=== PATIENT | female | born 1975 | race Caucasian/White ===

== ENCOUNTER 2019-08-03 08:38 | Emergency (ER) | payer OTHER ==
[~2019-08-03] VITALS: Ht 165.1 cm; Wt 122.5 kg
[2019-08-03 08:51] VITALS: BP 167/103
[2019-08-03] MEDS ORDERED: HYDROcodone/APAP 5/325MG 1 TAB TABLET PO ONE (09:00)
--- NOTE | 2019-08-03 09:09 | PHYS DOC ---
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 She fell down 4 steps, hit a landing, and then down to more steps with her knee getting tangled up at the landing. She has not been able to walk on it since this happened. Reports the pain is moderate to severe, worse with movement. She was given 800 mg of ibuprofen shortly after this happened without any significant improvement in pain. She has no previous history of knee pain or injuries or surgeries. She den ies any other pain from this fall. She denies any syncopal episode. Denies any loss of consciousness. Denies any difficulty breathing or headache.[] Review of Systems Review of Systems Constitutional: Denies fever or chills [] Eyes: Denies change in visual acuity, redness, or eye pain [] HENT: Denies nasal congestion or sore throat [] Respiratory: Denies cough or shortness of breath [] Cardiovascular: No chest pain or palpitations[] GI: Denies abdominal pain, nausea, vomiting, bloody stools or diarrhea [] : Denies dysuria or hematuria [] Musculoskeletal: Denies back pain, see history of present illness[] Integument: Denies rash or skin lesions [] Neurologic: Denies headache, focal weakness or sensory changes [] Endocrine: Denies polyuria or polydipsia [] All other systems were reviewed and found to be within normal limits, except as documented in this note. Current Medications Current Medications Current Medications Medications (Trade) Dose Ordered Sig/John Start Time Stop Time Status Last Admin Dose Admin Acetaminophen/ Hydrocodone Bitart (Lortab 5/325) 1 tab 1X ONCE 08/03/19 09:00 08/03/19 09:01 UNV Allergies Allergies Allergies Coded Allergies Type Severity Reaction Last Updated Verified No Known Drug Allergies 08/03/19 No Physical Exam Physical Exam Constitutional: Well developed, well nourished, mild discomfort, non-toxic appearance. [] HENT: Normocephalic, atraumatic, bilateral external ears normal, oropharynx moist, no oral exudates, nose normal. [] Eyes: PERRLA, EOMI, conjunctiva normal, no discharge. [] Neck: Normal range of motion, no tenderness, supple, no stridor. [] Cardiovascular:Heart rate regular rhythm, no murmur [] Lungs & Thorax: Bilateral breath sounds clear to auscultation [] Abdomen: Bowel sounds normal, soft, no tenderness, no masses, no pulsatile masses. Pelvis is stable in 3 planes [] Skin: Warm, dry, no erythema, no rash. [] Back: No tenderness, no CVA tenderness. [] Extremities: Left knee has diffuse tenderness, worse on the medial aspect. No significant edema or effusion is noted. Decreased active range of motion from 0 to 30 secondary to pain. No varus or valgus laxity. Negative drawer, negative Nomi test. No patellar apprehension. No bruising is present. A joint above and a joined below were evaluated and were normal. She is distally neurovascularly intact. The other 3 extremities show: No tenderness, no cyanosis, no clubbing, ROM intact, no edema. [] Neurologic: Alert and oriented X 3, normal motor function, normal sensory function, no focal deficits noted. [] Psychologic: Affect normal, judgement normal, mood normal. [] Current Patient Data Vital Signs Vital Signs Date Time Temp Pulse Resp B/P (MAP) Pulse Ox O2 Delivery O2 Flow Rate FiO2 08/03/19 08:51 98.0 80 18 98 Room Air EKG EKG [] Radiology/Procedures Radiology/Procedures PROCEDURE: KNEE LEFT 3V KNEE LEFT 3V DATE: 08/03/2019 8:53 AM INDICATION: Pain after falling down the stairs COMPARISON: None. FINDINGS: Bones: There is no evidence of acute fracture or dislocation. Joints: The joint spaces are normal. There is no joint effusion. Miscellaneous: None. IMPRESSION: No evidence of acute fracture.[] Course & Med Decision Making Course & Med Decision Making Pertinent Labs and Imaging studies reviewed. (See chart for details) Emergency department course: Patient arrived, was placed in bed, and tolerated exam well. She was given pain medicine. She was transported to and from radiology with any complications. After return of the imaging findings, these were discussed with the patient and family. Anemia immobilizer was applied. She was distally neurovascularly intact after knee immobilizer application. She was trained in the use of crutches. She was discharged in improved condition with all questions answered, with family driving. Medical decision making: There is no evidence of a fracture or dislocation. No evidence of neurologic or vascular compromise.[] Dragon Disclaimer Dragon Disclaimer This electronic medical record was generated, in whole or in part, using a voice recognition dictation system. Departure Departure: Impression: Primary Impression: Knee injury Disposition: HOME, SELF-CARE Condition: IMPROVED Referrals: LELE VORA MD (PCP) Follow-up in 2 days Patient Instructions: Crutch Use, Knee Immobilizer-Brief, Knee Sprain Additional Instructions: Follow-up with your regular doctor in 2 days. Weight-bear as tolerated with your left leg. Use the crutches as necessary for support. Return to the ER if worsening pain or any other concerns. Scripts Tramadol Hcl (TRAMADOL HCL) 50 Mg Tablet 50 MG PO PRN Q6HRS PRN for PAIN, #20 TAB Prov: ELLA RESENDIZ DO 08/03/19 Meloxicam (MELOXICAM) 7.5 Mg Tablet 7.5 MG PO DAILY for PAIN, #20 TAB Prov: ELLA RESENDIZ DO 08/03/19 Problem Qualifiers Primary Impression: Knee injury Encounter type: initial encounter Laterality: left Qualified Codes: S89. 92XA - Unspecified injury of left lower leg, initial encounter ELLA RESENDIZ DO Aug 03, 2019 09:09
--- NOTE | 2019-08-03 09:26 | RAD ---
KNEE LEFT 3V DATE: 08/03/2019 8:53 AM INDICATION: Pain after falling down the stairs COMPARISON: None. FINDINGS: Bones: There is no evidence of acute fracture or dislocation. Joints: The joint spaces are normal. There is no joint effusion. Miscellaneous: None. IMPRESSION: No evidence of acute fracture. Electronically signed by: Jareth Flores MD (08/03/2019 9:23 AM) [facility]
[2019-08-03] MEDS ORDERED: MELO7.5T29 PO (09:45)
[2019-08-03] MEDS ORDERED: TRAM50TA PO (09:45)
== END 2019-08-03 10:00 | disposition home or self-care (01) ==
LOC: ER 08:38
DX: S89.92XA Unspecified injury of left lower leg, initial encounter (principal); E11.9 Type 2 diabetes mellitus without complications; E78.00 Pure hypercholesterolemia, unspecified; W10.8XXA Fall (on) (from) other stairs and steps, initial encounter; Y93.89 Activity, other specified; Y92.89 Other specified places as the place of occurrence of the external cause; Y99.8 Other external cause status
CPT/HCPCS: 29505; 73562; 99284

== ENCOUNTER 2019-10-17 12:03 | Emergency (ER) | payer OTHER ==
[~2019-10-17] VITALS: Ht 165.1 cm; Wt 122.0 kg
[~2019-10-17 12:03] MED LIST: MELO7.5T29 PO; TRAM50TA PO
[2019-10-17] MEDS ORDERED: IV NORMAL SALINE 1,000ML 1,000 ML IV ONE (12:30)
[2019-10-17] MEDS ORDERED: ONDANSETRON PF 4 MG/2 ML VIAL. IVP ONE (12:30)
[2019-10-17 12:45] LABS: CALCIUM 8.6 mg/dL (8.5-10.1); GFR 59.7; POTASSIUM 4.3 mmol/L (3.5-5.1)
[2019-10-17 12:47] LABS: BASO # 0.1 x10^3/uL (0.0-0.2); BASO % 1 % (0-3); EOS # 0.1 x10^3/uL (0.0-0.7); EOS % 1 % (0-3); HEMATOCRIT 39.8 % (36.0-47.0); HEMOGLOBIN 13.2 g/dL (12.0-15.5); LYMPH # 0.8 x10^3/uL (1.0-4.8); LYMPH % 5 % (24-48); MEAN CORPUSCULAR HEMOGLOBIN 30 pg (25-35); MEAN CORPUSCULAR HGB CONC 33 g/dL (31-37); MEAN CORPUSCULAR VOLUME 90 fL (79-100); MONO # 1.4 x10^3/uL (0.0-1.1); MONO % 8 % (0-9); NEUT # 14.3 x10^3uL (1.8-7.7); NEUT % 85 % (31-73); PLATELET COUNT 151 x10^3/uL (140-400); RED BLOOD COUNT 4.44 x10^6/uL (3.50-5.40); RED CELL DISTRIBUTION WIDTH 13.9 % (11.5-14.5); WHITE BLOOD COUNT 16.7 x10^3/uL (4.0-11.0)
[2019-10-17 12:51] LABS: ALBUMIN/GLOBULIN RATIO 0.7 (1.0-1.7); TOTAL BILIRUBIN 1.7 mg/dL (0.2-1.0); TOTAL PROTEIN 7.6 g/dL (6.4-8.2)
--- NOTE | 2019-10-17 12:56 | RAD ---
AP view of the abdomen Clinical indications: Nausea and abdominal pain. FINDINGS: No obstructive bowel pattern is evident. No significant fecal retention is seen. Surgical clips are seen within the right upper quadrant of the abdomen. Calcified phleboliths are seen within the right side of the anatomic pelvis. The osseous structures are intact. IMPRESSION: No acute abnormality. Electronically signed by: Hakan Nix MD (10/17/2019 12:54 PM) [id number]
[2019-10-17 13:00] LABS: INFLUENZA A PATIENT NEGATIVE (NEGATIVE); INFLUENZA B PATIENT NEGATIVE (NEGATIVE)
[2019-10-17 13:05] LABS: % BANDS 2 % (0-9); % EOS 1 % (0-5); % LYMPHS 4 % (24-48); % MONOS 5 % (0-10); % SEGS 88 % (35-66); PLT ESTIMATE ADEQUATE (ADEQUATE)
--- NOTE | 2019-10-17 13:08 | PHYS DOC ---
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 She has been feeling under the weather for the last 7+ days. She had a vaginal yeast infections treated 7 days ago. No symptoms have resolved. Currently she has diffuse body aches everywhere and persistent feeling of being full when she eats. The patient is a type II diabetic but has never had a previous diagnosis of gastroparesis. She is still having bowel movements. She denies dysuria or increased urinary frequency. No fever or chills. She has some right upper quadrant abdominal pain that is mild in intensity. It is tender to palpation. She has a history of liver resection due to benign tumors as well as cholecystectomy. Review of Systems Review of Systems Constitutional: Body aches. Denies fever or chills [] Eyes: Denies change in visual acuity, redness, or eye pain [] HENT: Denies nasal congestion or sore throat [] Respiratory: Denies cough or shortness of breath [] Cardiovascular: No additional information not addressed in HPI [] GI: Epigastric abdominal pain, nausea. Denies vomiting, bloody stools or diarrhea [] : Denies dysuria or hematuria [] Musculoskeletal: Denies back pain or joint pain [] Integument: Denies rash or skin lesions [] Neurologic: Denies headache, focal weakness or sensory changes [] Endocrine: Denies polyuria or polydipsia [] All other systems were reviewed and found to be within normal limits, except as documented in this note. Current Medications Current Medications Current Medications Medications (Trade) Dose Ordered Sig/John Start Time Stop Time Status Last Admin Dose Admin Ondansetron HCl (Zofran) 4 mg 1X ONCE 10/17/19 12:30 10/17/19 12:38 DC 10/17/19 12:24 4 MG Sodium Chloride 1,000 ml @ 1,000 mls/hr 1X ONCE 10/17/19 12:30 10/17/19 13:29 10/17/19 12:25 1,000 MLS/HR Allergies Allergies Allergies Coded Allergies Type Severity Reaction Last Updated Verified cefdinir Allergy Unknown 10/17/19 Yes Physical Exam Physical Exam Constitutional: Well developed, morbid obesity, well nourished, no acute distress, non-toxic appearance. [] HENT: Normocephalic, atraumatic, bilateral external ears normal, oropharynx moist, no oral exudates, nose normal. [] Eyes: PERRLA, EOMI, conjunctiva normal, no discharge. [] Neck: Normal range of motion, no tenderness, supple, no stridor. [] Cardiovascular:Heart rate regular rhythm, no murmur [] Lungs & Thorax: Bilateral breath sounds clear to auscultation [] Abdomen: Bowel sounds normal, soft, epigastric and right upper quadrant ten derness, no masses, no pulsatile masses. [] Skin: Warm, dry, no erythema, no rash. [] Back: No tenderness, no CVA tenderness. [] Extremities: No tenderness, no cyanosis, no clubbing, ROM intact, no edema. [] Neurologic: Alert and oriented X 3, normal motor function, normal sensory function, no focal deficits noted. [] Psychologic: Affect normal, judgement normal, mood normal. [] Current Patient Data Vital Signs Vital Signs Date Time Temp Pulse Resp B/P (MAP) Pulse Ox O2 Delivery O2 Flow Rate FiO2 10/17/19 12:07 100.0 111 18 133/72 (92) 96 Room Air Lab Results Laboratory Tests Test 10/17/19 12:18 10/17/19 12:19 10/17/19 12:23 Glucose (Fingerstick) 231 mg/dL (70-99) H Sodium Level 133 mmol/L (136-145) L Potassium Level 4.3 mmol/L (3.5-5.1) Chloride Level 95 mmol/L (98-107) L Carbon Dioxide Level 25 mmol/L (21-32) Anion Gap 13 (6-14) Blood Urea Nitrogen 12 mg/dL (7-20) Creatinine 1.0 mg/dL (0.6-1.0) Estimated GFR (Cockcroft-Gault) 59.7 BUN/Creatinine Ratio 12 (6-20) Glucose Level 252 mg/dL (70-99) H Calcium Level 8.6 mg/dL (8.5-10.1) Total Bilirubin 1.7 mg/dL (0.2-1.0) H Aspartate Amino Transferase (AST) 20 U/L (15-37) Alanine Aminotransferase (ALT) 24 U/L (14-59) Alkaline Phosphatase 99 U/L (46-116) Total Protein 7.6 g/dL (6.4-8.2) Albumin 3.0 g/dL (3.4-5.0) L Albumin/Globulin Ratio 0.7 (1.0-1.7) L Lipase 82 U/L (73-393) Influenza Type A (Rapid) Negative (NEGATIVE) Influenza Type B (Rapid) Negative (NEGATIVE) EKG EKG [] Radiology/Procedures Radiology/Procedures [] Impressions: AP view of the abdomen Clinical indications: Nausea and abdominal pain. FINDINGS: No obstructive bowel pattern is evident. No significant fecal retention is seen. Surgical clips are seen within the right upper quadrant of the abdomen. Calcified phleboliths are seen within the right side of the anatomic pelvis. The osseous structures are intact. IMPRESSION: No acute abnormality. Electronically signed by: Sarah Beth Nix MD (10/17/2019 12:54 PM) [id number] DICTATED AND SIGNED BY: SARAH BETH NIX MD DATE: 10/17/19 1254 CC: ANDI MAZA DO; LELE VORA MD ~ Contiguous axial imaging abdomen pelvis performed after the intravenous demonstration of 75 cc Omnipaque 300. One or more of the following individualized dose reduction techniques were utilized for this examination: 1. Automated exposure control 2. Adjustment of the mA and/or kV according to patient size 3. Use of iterative reconstruction technique. FINDINGS: Limited images of lung bases are clear. Heart size within normal limits. No pleural or pericardial effusion. There is evidence of prior right lobe liver resection with secondary hypertrophy of the left lobe and caudate. Main portal vein and SMV are patent. There is no focal hepatic mass. No biliary ductal dilatation. Spleen is upper limits of normal in size. Pancreas, adrenal glands and kidneys are unremarkable. No hydronephrosis. There is some asymmetric inflammatory stranding in the left perinephric fat without discrete fluid collection. Unopacified GI tract is normal in caliber and contour. No focal bowel wall thickening. Appendix normal in caliber. No ascites. There are borderline enlarged left periaortic lymph nodes measuring up to 10 mm short axis. No mesenteric lymphadenopathy. Images the pelvis show nondistended urinary bladder. Uterus and adnexa are unremarkable. No free pelvic fluid or pelvic lymphadenopathy. Bone windows show no acute findings. Mild multilevel spondylosis. IMPRESSION: 1. There is mild asymmetric inflammatory stranding in the left perinephric fat, nonspecific. Although the findings could be chronic, acute pyelonephritis is another consideration. Correlate with urinalysis. 2. Otherwise no acute abnormality. Normal appendix. 3. Status post right lobe liver resection. Electronically signed by: Philippe Hutchison MD (10/17/2019 2:37 PM) [id number] DICTATED AND SIGNED BY: PHILIPPE HUTCHISON MD DATE: 10/17/19 [id number] CC: ANDI MAZA DO; LELE VORA MD ~ Course & Med Decision Making Course & Med Decision Making Pertinent Labs and Imaging studies reviewed. (See chart for details) Patient is an elevated white count. Her urinalysis shows UTI. She is allergic to cefdinir, so we will treat her with meropenem followed by 5 more days of levofloxacin. Her CT of the abdomen and pelvis shows possible early pyelonephritis. See official report for details. She does not have a fever. Her vitals are normal. She is stable for discharge at this time. [] Dragon Disclaimer Dragon Disclaimer This electronic medical record was generated, in whole or in part, using a voice recognition dictation system. Departure Departure: Impression: Primary Impression: Pyelonephritis Disposition: HOME, SELF-CARE Condition: STABLE Referrals: LELE VORA MD (PCP) Patient Instructions: Pyelonephritis, Adult, [id number] Scripts Metoclopramide Hcl (REGLAN) 5 Mg Tablet 1 TAB PO TID PRN for NAUSEA, #30 TAB 0 Refills Prov: ANDI MAZA DO 10/17/19 Levofloxacin (LEVOFLOXACIN) 750 Mg Tablet 1 TAB PO DAILY for pyelonephritis, #5 TAB Prov: ANDI MAZA DO 10/17/19 ANDI MAZA DO Oct 17, 2019 13:07
[2019-10-17 13:54] LABS: CLARITY,URINE HAZY; COLOR,URINE AMBER; GLUCOSE,URINE 100 mg/dL (NEG)
[2019-10-17 13:55] LABS: BACTERIA,URINE MOD /HPF (0-FEW); BILIRUBIN,URINE NEG (NEG); NITRITE,URINE POS (NEG)
[2019-10-17 13:56] LABS: AMORPHOUS SEDIMENT,UR PRESENT /HPF; HYALINE CASTS, URINE FEW /HPF; SQUAMOUS EPITHELIAL CELL,UR FEW /LPF
[2019-10-17] MEDS ORDERED: ERTAPENEM 1 GM in IV NORMAL SALINE 50ML 50 ML IV ONE (14:00)
[2019-10-17] MEDS ORDERED: IOHEXOL 300 MG/ML 75 ML VIAL. IV ONE (14:15)
[2019-10-17] MEDS ORDERED: CONTRAST GIVEN MC PRN (14:15)
--- NOTE | 2019-10-17 14:40 | RAD ---
CT abdomen pelvis with contrast dated 10/17/2019. No comparison available. CLINICAL INDICATION: Epigastric pain. TECHNIQUE: Contiguous axial imaging abdomen pelvis performed after the intravenous demonstration of 75 cc Omnipaque 300. One or more of the following individualized dose reduction techniques were utilized for this examination: 1. Automated exposure control 2. Adjustment of the mA and/or kV according to patient size 3. Use of iterative reconstruction technique. FINDINGS: Limited images of lung bases are clear. Heart size within normal limits. No pleural or pericardial effusion. There is evidence of prior right lobe liver resection with secondary hypertrophy of the left lobe and caudate. Main portal vein and SMV are patent. There is no focal hepatic mass. No biliary ductal dilatation. Spleen is upper limits of normal in size. Pancreas, adrenal glands and kidneys are unremarkable. No hydronephrosis. There is some asymmetric inflammatory stranding in the left perinephric fat without discrete fluid collection. Unopacified GI tract is normal in caliber and contour. No focal bowel wall thickening. Appendix normal in caliber. No ascites. There are borderline enlarged left periaortic lymph nodes measuring up to 10 mm short axis. No mesenteric lymphadenopathy. Images the pelvis show nondistended urinary bladder. Uterus and adnexa are unremarkable. No free pelvic fluid or pelvic lymphadenopathy. Bone windows show no acute findings. Mild multilevel spondylosis. IMPRESSION: 1. There is mild asymmetric inflammatory stranding in the left perinephric fat, nonspecific. Although the findings could be chronic, acute pyelonephritis is another consideration. Correlate with urinalysis. 2. Otherwise no acute abnormality. Normal appendix. 3. Status post right lobe liver resection. Electronically signed by: Philippe Hutchison MD (10/17/2019 2:37 PM) [id number]
[2019-10-17] MEDS ORDERED: MEROPENEM 1 GM in IV NORMAL SALINE 100ML 100 ML IV ONE (14:45)
[2019-10-17] MEDS ORDERED: IV NORMAL SALINE 100ML 100 ML ONE (14:47)
[2019-10-17] MEDS ORDERED: MEROPENEM 1 GM VIAL IV ONE (14:47)
[2019-10-17 14:51] VITALS: BP 137/72
[2019-10-17] MEDS ORDERED: LEVO750T5 PO (14:52)
[2019-10-17] MEDS ORDERED: METO5TAB55 PO (14:55)
== END 2019-10-17 15:30 | disposition home or self-care (01) ==
LOC: ER 12:03
DX: N12 Tubulo-interstitial nephritis, not specified as acute or chronic (principal); E11.9 Type 2 diabetes mellitus without complications; E78.5 Hyperlipidemia, unspecified; Z90.49 Acquired absence of other specified parts of digestive tract; Z88.8 Allergy status to other drugs, medicaments and biological substances
CPT/HCPCS: 36415; 74018; 74177; 80053; 81001; 82947; 83690; 85007; 85025; 87086; 87804; 96365; 96375; 99285; J2185; J2405; Q9967; J7030

== ENCOUNTER → 2021-11-30 | Outpatient (CLI) | payer OTHER ==
[~2021-11-30] MED LIST changes: +LEVO750T5 PO; +METO5TAB55 PO
--- NOTE | 2021-12-01 16:28 | RAD ---
EXAM: XR NECK SOFT TISSUE 11/30/2021 12:26 PM CLINICAL INDICATION: Neck injury. Carried a heavy box on top of head. Left-sided pain COMPARISON: None TECHNIQUE: AP and lateral views of the neck FINDINGS: The airway is clear. Epiglottis is normal. There is no prevertebral soft tissue swelling. Lung apices are clear. The cervical spine is viewed through C6-C7. There is mild disc space narrowing with small anterior osteophytes at most levels of the cervical spine. Slight reversal lordosis. IMPRESSION: 1. No acute abnormality of the airway. 2. Mild degenerative disc disease of the cervical spine. Electronically signed by: Kaitlynn Quintana MD (12/01/2021 4:26 PM) [id number]
== END ==
LOC: RAD 12:02
PROVIDERS: ATTEND Nurse Practitioner Family
DX: S19.9XXA Unspecified injury of neck, initial encounter (principal); M50.30 Other cervical disc degeneration, unspecified cervical region; M25.78 Osteophyte, vertebrae; M48.02 Spinal stenosis, cervical region; X58.XXXA Exposure to other specified factors, initial encounter; Y93.89 Activity, other specified; Y92.89 Other specified places as the place of occurrence of the external cause; Y99.8 Other external cause status
CPT/HCPCS: 70360

== ENCOUNTER → 2021-12-17 | Emergency (ER) | payer OTHER ==
[~2021-12-17] VITALS: Ht 165.1 cm; Wt 120.0 kg
[~2021-12-17] MED LIST changes: +KETOROLAC 60 MG/2 ML VIAL. IM ONE; +METH4TAB2 PO; +ORPHENADRINE CITRATE 60 MG/2 ML VIAL. IM ONE
[2021-12-17 16:15] VITALS: BP 173/87
--- NOTE | 2021-12-17 16:47 | PHYS DOC ---
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 She reports that she went to the urgent care had some x-rays that were negative and got treated with a muscle relaxer that she has been taking at night only because she has to care for her daughter as well as ibuprofen. She reports that her symptoms had improved but she said she watched a Facebook video where spider popped out of her and she moved her neck back quickly started having pain. She saw chiropractor on Sunday and has had increased pain. She reports that the pain radiates down the left side of her neck and into her arm and shoulder. She denies any numbness or tingling currently in her arm. She rates her pain 10 out of 10. She denies any nausea, vomiting or fevers. Review of Systems: Review of Systems: Constitutional: See HPI HENT: See HPI GI: See HPI Musculoskeletal: See HPI Neurologic: See HPI Current Medications: Current Meds: Current Medications Medications (Trade) Dose Ordered Sig/John Start Time Stop Time Status Last Admin Dose Admin Ketorolac Tromethamine (Toradol Im) 60 mg 1X ONCE 12/17/21 16:30 12/17/21 16:39 DC Orphenadrine Citrate (Norflex) 60 mg 1X ONCE 12/17/21 16:30 12/17/21 16:39 DC Allergies: Allergies: Allergies Coded Allergies Type Severity Reaction Last Updated Verified cefdinir Allergy Unknown 10/17/19 Yes Physical Exam: PE: Constitutional: Well developed, well nourished, no acute distress, non-toxic appearance. [] HENT: Normocephalic, atraumatic, bilateral external ears normal, oropharynx moist, no oral exudates, nose normal. [] Eyes: PERRL, EOMI, conjunctiva normal, no discharge. [] Neck: Normal range of motion, no tenderness, supple, pain with palpation along left sternocleidomastoid muscle, no stridor. [] Cardiovascular normal peripheral perfusion Lungs & Thorax: Normal work of breathing, no tachypnea Abdomen: Soft and flat Skin: Warm, dry, no erythema, no rash. [] Back: No tenderness, normal range of motion Extremities: No tenderness, no cyanosis, no clubbing, ROM intact, no edema. [] Neurologic: Alert and oriented X 3, normal motor function, normal sensory function, no focal deficits noted. [] Psychologic: Affect normal, judgement normal, mood normal. [] EKG: EKG: [] Radiology/Procedures: Radiology/Procedures: []PROCEDURE: CT CERVICAL SPINE WO CONTRAST Exam: CT cervical spine without contrast INDICATION: Neck pain TECHNIQUE: Sequential axial images through the cervical spine obtained without IV contrast. Sagittal and coronal reformatted images were reconstructed from the axial data and reviewed. Exposure: One or more of the following in the visualized dose reduction techniques were utilized for this examination: 1. Automated exposure control 2. Adjustment of the MA and/or KV according to patient size 3. Use of iterative of reconstructive technique Comparisons: None FINDINGS: Visualized intracranial structures are unremarkable. Straightening of cervical spine which may be positional. Vertebral body heights are well-maintained. Fracture to the cervical spine is not identified. The level spondylotic change in cervical spine with degenerative disc disease throughout cervical spine. Visualized paraspinal soft tissues are unremarkable. IMPRESSION: Negative CT C-spine for acute traumatic injury. Mild multilevel spondylotic change throughout cervical spine. Electronically signed by: Ollie Hillman MD (12/17/2021 4:53 PM) [facility] DICTATED AND SIGNED BY: OLLIE HILLMAN MD DATE: 12/17/211649 CC: GUS WILCOX APRN; LELE VORA MD ~ Heart Score: C/O Chest Pain: N/A Risk Factors: Risk Factors: DM, Current or recent (<one month) smoker, HTN, HLP, family history of CAD, obesity. Risk Scores: Score 0 - 3: 2.5% MACE over next 6 weeks - Discharge Home Score 4 - 6: 20.3% MACE over next 6 weeks - Admit for Clinical Observation Score 7 - 10: 72.7% MACE over next 6 weeks - Early Invasive Strategies Course & Med Decision Making: Course & Med Decision Making Pertinent Labs and Imaging studies reviewed. (See chart for details) [] Patient presents to the emergency department for left-sided neck pain. Imaging was performed in the emergency department she was treated with anti- inflammatory medication and muscle relaxer. Imaging did not show any acute findings. Patient is likely experiencing a muscle spasm as she is tender over the sternocleidomastoid muscle and may be causing some pinching of the nerve. Patient will be discharged home with a steroid Dosepak. She has Flexeril at home to take. I discussed with patient all findings and diagnostic testing as well as the need to follow-up with PCP for further evaluation and treatment or return to the ER if any new or worsening symptoms. Strict return precautions were also discussed at length. Patient voiced understanding and agreement with the plan. Patient is hemodynamically stable at the time of disposition. Dragon Disclaimer: Dragon Disclaimer: This electronic medical record was generated, in whole or in part, using a voice recognition dictation system. Departure Departure: Impression: Primary Impression: Neck pain Disposition: HOME / SELF CARE / HOMELESS Condition: GOOD Referrals: LELE VORA MD (PCP) Patient Instructions: Muscle Cramps, [id number] Additional Instructions: You are seen in the emergency department today for neck pain. CT imaging was performed you do not have an acute fracture but you likely have muscle spasm and nerve compression. Treatment for this is anti-inflammatory medications like ibuprofen as well as muscle relaxers. Continue to take the muscle relaxers that you have previously prescribed as directed. You are being discharged home with a steroid Dosepak. As we discussed, you will need to monitor your blood sugars closely when you take this. Follow-up with your primary care provider on Sunday regarding your ER visit. Return to the emergency department if you develop any injuries, worsening of your neck pain, vision changes, poor coordination or inability to walk, tractable nausea or vomiting, high fevers refractory to treatment. Scripts Methylprednisolone (MEDROL) 4 Mg Tab.ds.pk 1 PKG PO UD for inflammation, #1 PKG 0 Refills Prov: GUS WILCOX APRN 12/17/21 GUS WILCOX APRN Dec 17, 2021 16:46
--- NOTE | 2021-12-17 16:56 | RAD ---
Exam: CT cervical spine without contrast INDICATION: Neck pain TECHNIQUE: Sequential axial images through the cervical spine obtained without IV contrast. Sagittal and coronal reformatted images were reconstructed from the axial data and reviewed. Exposure: One or more of the following in the visualized dose reduction techniques were utilized for this examination: 1. Automated exposure control 2. Adjustment of the MA and/or KV according to patient size 3. Use of iterative of reconstructive technique Comparisons: None FINDINGS: Visualized intracranial structures are unremarkable. Straightening of cervical spine which may be positional. Vertebral body heights are well-maintained. Fracture to the cervical spine is not identified. The level spondylotic change in cervical spine with degenerative disc disease throughout cervical spi ne. Visualized paraspinal soft tissues are unremarkable. IMPRESSION: Negative CT C-spine for acute traumatic injury. Mild multilevel spondylotic change throughout cervica l spine. Electronically signed by: Ollie Mukherjee MD (12/17/2021 4:53 PM) [facility]
== END | disposition home or self-care (01) ==
LOC: ER 16:00
DX: M54.2 Cervicalgia (principal); E11.9 Type 2 diabetes mellitus without complications; E78.00 Pure hypercholesterolemia, unspecified; Z88.1 Allergy status to other antibiotic agents
CPT/HCPCS: 72125; 96372; 99284; J1885; J2360